=== PATIENT | male | born 1965 | race African-American/Black ===

== ENCOUNTER 2021-03-17 20:49 | Emergency (ER) | payer OTHER ==
[~2021-03-17] VITALS: Ht 175.3 cm; Wt 68.2 kg
[2021-03-17 21:17] LABS: GLUCOSE,POINT OF CARE 182 MG/DL (70-110)
[2021-03-17 21:28] LABS: BASOPHILS % (AUTO) 0.4 % (0.0-2.0); EOSINOPHILS % (AUTO) 2.9 % (1.0-6.0); HEMATOCRIT 40.1 % (41-53); HEMOGLOBIN 13.1 g/dL (13.5-17.5); LYMPHOCYTES # (AUTO) 1.7 K/uL (1.0-4.8); LYMPHOCYTES % (AUTO) 31.4 % (22.0-44.0); MEAN CORPUSCULAR HEMOGLOBIN 32.4 pg (26.0-34.0); MEAN CORPUSCULAR HGB CONC 32.6 G/dL (31.0-37.0); MEAN CORPUSCULAR VOLUME 99 fL (80-100); MONOCYTES # (AUTO) 0.5 K/uL (0.1-1.0); MONOCYTES % (AUTO) 10.2 % (2.0-9.0); NEUTROPHILS % (AUTO) 55.1 % (40.0-70.0); PLATELET COUNT (AUTO) 226 K/uL (150-450); RED BLOOD CELL COUNT(AUTO) 4.04 MIL/uL (4.50-5.90); RED CELL DISTRIBUTION WIDTH 12.8 % (11.5-14.5)
[2021-03-17] MEDS ORDERED: ONDANSETRON HCL 4 MG/2 ML VIAL IM ONE (21:30)
[2021-03-17 21:36] LABS: ANION GAP 5 mmol/L (8-16); CALCIUM, TOTAL 9.2 mg/dL (8.8-10.5); CARBON DIOXIDE 33 mmol/L (22-29); CHLORIDE 103 mmol/L (98-107); CREATININE 1.31 mg/dL (0.60-1.30); GLOMERULAR FILTR. RATE CALC > 60 mL/min (>60); GLUCOSE,RANDOM 196 mg/dL (70-110); POTASSIUM 4.2 mmol/L (3.5-5.1); SODIUM SERUM 141 mmol/L (136-145); UREA NITROGEN, BLOOD 16 mg/dL (7-18)
[2021-03-17 21:41] LABS: ALANINE AMINOTRANSFERASE 30 U/L (12-78); ALBUMIN 3.9 g/dL (3.4-5.0); ALKALINE PHOSPHATASE 91 U/L (46-116); ASPARTATE AMINOTRANSFERASE 28 U/L (15-37); BILIRUBIN,TOTAL 0.3 mg/dL (0.1-1.0); TOTAL PROTEIN, SERUM 7.4 g/dL (6.4-8.2)
[2021-03-18] MEDS ORDERED: LORazepam 2 MG/ML VIAL IM ONE (04:00)
[2021-03-18] MEDS ORDERED: DiphenhydrAMINE HCL 50 MG/ML VIAL IM ONE (04:00)
[2021-03-18] MEDS ORDERED: HALOPERIDOL LACTATE 5 MG/ML VIAL IM ONE (04:00)
[2021-03-18 04:56] VITALS: BP 134/82
== END 2021-03-18 07:52 | disposition home or self-care (01) ==
LOC: EMS 20:49
DX: F25.9 Schizoaffective disorder, unspecified (principal); R45.851 Suicidal ideations; F15.10 Other stimulant abuse, uncomplicated; E11.9 Type 2 diabetes mellitus without complications; E78.00 Pure hypercholesterolemia, unspecified; I10 Essential (primary) hypertension; Z59.0 Homelessness
CPT/HCPCS: 36415; 80053; 82962; 85025; 96372; 99291; G0480; J1200; J1630; J2060; J2405

== ENCOUNTER 2021-03-26 17:20 | Emergency (ER) | payer OTHER | END 2021-03-26 18:02 | LOC: EMS 17:20 | DX: Z02.89 Encounter for other administrative examinations (principal); Z53.21 Procedure and treatment not carried out due to patient leaving prior to being seen by health care provider ==

== ENCOUNTER 2021-10-14 17:45 | Emergency (ER) | payer OTHER ==
[~2021-10-14] VITALS: Ht 175.3 cm; Wt 81.8 kg
[2021-10-14] MEDS ORDERED: BUSP10TA23 PO (17:48)
[2021-10-14 20:04] LABS: BASOPHILS % (AUTO) 0.5 % (0.0-2.0); EOSINOPHILS % (AUTO) 3.1 % (1.0-6.0); HEMATOCRIT 34.2 % (41-53); HEMOGLOBIN 11.4 g/dL (13.5-17.5); LYMPHOCYTES # (AUTO) 1.2 K/uL (1.0-4.8); LYMPHOCYTES % (AUTO) 31.8 % (22.0-44.0); MEAN CORPUSCULAR HEMOGLOBIN 32.9 pg (26.0-34.0); MEAN CORPUSCULAR HGB CONC 33.2 G/dL (31.0-37.0); MEAN CORPUSCULAR VOLUME 99 fL (80-100); MONOCYTES # (AUTO) 0.3 K/uL (0.1-1.0); MONOCYTES % (AUTO) 8.4 % (2.0-9.0); NEUTROPHILS # (AUTO) 2.1 K/uL (1.8-7.7); NEUTROPHILS % (AUTO) 56.2 % (40.0-70.0); PLATELET COUNT (AUTO) 326 K/uL (150-450); RED BLOOD CELL COUNT(AUTO) 3.46 MIL/uL (4.50-5.90); RED CELL DISTRIBUTION WIDTH 14.8 % (11.5-14.5)
[2021-10-14 20:14] LABS: ANION GAP 2 mmol/L (8-16); CALCIUM, TOTAL 8.6 mg/dL (8.8-10.5); CARBON DIOXIDE 33 mmol/L (22-29); CHLORIDE 107 mmol/L (98-107); CREATININE 1.16 mg/dL (0.60-1.30); GLOMERULAR FILTR. RATE CALC > 60 mL/min (>60); GLUCOSE,RANDOM 292 mg/dL (70-110); POTASSIUM 3.7 mmol/L (3.5-5.1); SODIUM SERUM 142 mmol/L (136-145); UREA NITROGEN, BLOOD 7 mg/dL (7-18)
[2021-10-14 20:20] LABS: ALANINE AMINOTRANSFERASE 17 U/L (12-78); ALBUMIN 3.6 g/dL (3.4-5.0); ALKALINE PHOSPHATASE 69 U/L (46-116); ASPARTATE AMINOTRANSFERASE 16 U/L (15-37); BILIRUBIN,TOTAL 0.5 mg/dL (0.1-1.0); LIPASE 636 U/L (73-393); TOTAL PROTEIN, SERUM 7.2 g/dL (6.4-8.2)
[2021-10-14 20:45] VITALS: BP 122/71
[2021-10-14 21:45] LABS: AMPHET/METH SCREEN,URINE NEGATIVE (NEGATIVE); BARBITURATE SCREEN, URINE NEGATIVE (NEGATIVE); BENZODIAZEPINES SCREEN,URINE NEGATIVE (NEGATIVE); CANNABINOID SCREEN,URINE NEGATIVE (NEGATIVE); COCAINE SCREEN,URINE NEGATIVE (NEGATIVE); METHADONE SCREEN, URINE NEGATIVE (NEGATIVE); OPIATE SCREEN,URINE NEGATIVE (NEGATIVE)
[2021-10-14 21:50] LABS: PHENCYCLIDINE SCREEN,URINE NEGATIVE (NEGATIVE)
== END 2021-10-14 21:41 | disposition home or self-care (01) ==
LOC: EMS 17:50
DX: K85.90 Acute pancreatitis without necrosis or infection, unspecified (principal); F31.9 Bipolar disorder, unspecified; I10 Essential (primary) hypertension; E78.00 Pure hypercholesterolemia, unspecified; E11.9 Type 2 diabetes mellitus without complications; Z79.899 Other long term (current) drug therapy
CPT/HCPCS: 36415; 80053; 80307; 83690; 84484; 85025; 99283; G0480

== ENCOUNTER 2023-09-06 02:53 | Inpatient (IN) | payer OTHER ==
[~2023-09-06] VITALS: Ht 175.3 cm; Wt 74.0 kg
[~2023-09-06 02:53] MED LIST: BUSP10TA23 PO
[2023-09-06 03:26] LABS: BASOPHILS % (AUTO) 0.4 % (0.0-2.0); EOSINOPHILS % (AUTO) 1.8 % (1.0-6.0); HEMATOCRIT 38.5 % (41-53); LYMPHOCYTES # (AUTO) 2.2 K/uL (1.0-4.8); LYMPHOCYTES % (AUTO) 41.5 % (22.0-44.0); MEAN CORPUSCULAR HEMOGLOBIN 33.3 pg (26.0-34.0); MEAN CORPUSCULAR HGB CONC 33.7 G/dL (31.0-37.0); MEAN CORPUSCULAR VOLUME 99 fL (80-100); MONOCYTES # (AUTO) 0.5 K/uL (0.1-1.0); MONOCYTES % (AUTO) 8.9 % (2.0-9.0); NEUTROPHILS # (AUTO) 2.6 K/uL (1.8-7.7); NEUTROPHILS % (AUTO) 47.4 % (40.0-70.0); PLATELET COUNT (AUTO) 239 K/uL (150-450); RED BLOOD CELL COUNT(AUTO) 3.89 MIL/uL (4.50-5.90); RED CELL DISTRIBUTION WIDTH 13.4 % (11.5-14.5); WHITE BLOOD COUNT (AUTO) 5.4 K/uL (4.5-11.0)
[2023-09-06 03:42] LABS: ALANINE AMINOTRANSFERASE 17 U/L (12-78); ALBUMIN 3.2 g/dL (3.4-5.0); ALKALINE PHOSPHATASE 106 U/L (46-116); ANION GAP 9 mmol/L (8-16); ASPARTATE AMINOTRANSFERASE 13 U/L (15-37); BILIRUBIN,TOTAL 0.2 mg/dL (0.1-1.0); CALCIUM, TOTAL 7.9 mg/dL (8.8-10.5); CARBON DIOXIDE 23 mmol/L (22-29); CHLORIDE 90 mmol/L (98-107); CREATININE 1.17 mg/dL (0.60-1.30); GLOMERULAR FILTR. RATE CALC > 60 mL/min (>60); POTASSIUM 4.4 mmol/L (3.5-5.1); TOTAL PROTEIN, SERUM 6.6 g/dL (6.4-8.2); UREA NITROGEN, BLOOD 15 mg/dL (7-18)
[2023-09-06 03:51] LABS: ACETONE,BLOOD NEGATIVE (NEGATIVE)
[2023-09-06 03:53] LABS: SODIUM SERUM 122 mmol/L (136-145)
[2023-09-06 03:54] LABS: GLUCOSE,RANDOM 625 mg/dL (70-110)
[2023-09-06] MEDS ORDERED: SODIUM CHLORIDE 0.9% 2,200 ML IV ONE (04:00)
[2023-09-06] MEDS ORDERED: INSULIN REGULAR, HUMAN 100 UNITS/ML IVP ONE (04:15)
[2023-09-06] MEDS ORDERED: DEXTROSE 5%-WATER 1,000 ML IV SCH (04:30)
[2023-09-06] MEDS ORDERED: DEXTROSE 50%-WATER 25 GM/50 ML SYRINGE IVP PRN ×2 (04:30→09:45)
[2023-09-06] MEDS ORDERED: INSULIN REGULAR, HUMAN 100 UNITS in SODIUM CHLORIDE 0.9% 99 ML IV PRN ×2 (04:30)
[2023-09-06 04:38] LABS: COVID AG,FIA SOURCE NASAL SWAB
[2023-09-06] MEDS ORDERED: SODIUM CHLORIDE 0.9% 0 ML ONE (04:52)
[2023-09-06] MEDS ORDERED: INSULIN REGULAR, HUMAN 100 UNITS/ML ONE (04:52)
[2023-09-06 05:09] LABS: SARS-COV2 (COVID) ANTIGEN,FIA Negative (Negative)
[2023-09-06 06:41] LABS: GLUCOSE,POINT OF CARE 207 MG/DL (70-110)
[2023-09-06 07:50] LABS: GLUCOMETER DEV NAME(LOC) PVLAB.39; GLUCOSE,POINT OF CARE 169 MG/DL (70-110)
[2023-09-06 08:00] VITALS: BP 111/69; PULSE 67; RESP 22; TEMP 99.3
[2023-09-06 09:00] VITALS: BP 120/70; PULSE 67; RESP 18; TEMP 99.6
[2023-09-06] MEDS ORDERED: ACETAMINOPHEN 325 MG TABLET PO PRN (09:45)
[2023-09-06] MEDS ORDERED: ONDANSETRON HCL 4 MG/2 ML VIAL IVP PRN (09:45)
[2023-09-06] MEDS ORDERED: SODIUM CHLORIDE 0.9% 1,000 ML IV ONE (09:45)
[2023-09-06] MEDS ORDERED: MAGNESIUM HYDROXIDE SUSPENSION 30 ML UDCUP PO PRN (09:45)
[2023-09-06 10:36] LABS: GLUCOMETER DEV NAME(LOC) PVLAB.39; GLUCOSE,POINT OF CARE 167 MG/DL (70-110)
[2023-09-06 10:36] LABS: GLUCOMETER DEV NAME(LOC) PVLAB.39; GLUCOSE,POINT OF CARE 167 MG/DL (70-110)
[2023-09-06 10:36] LABS: GLUCOMETER DEV NAME(LOC) PVLAB.39; GLUCOSE,POINT OF CARE 65 MG/DL (70-110)
[2023-09-06 10:55] LABS: ANION GAP 5 mmol/L (8-16); CALCIUM, TOTAL 7.4 mg/dL (8.8-10.5); CARBON DIOXIDE 27 mmol/L (22-29); CHLORIDE 99 mmol/L (98-107); CREATININE 0.87 mg/dL (0.60-1.30); GLOMERULAR FILTR. RATE CALC > 60 mL/min (>60); GLUCOSE,RANDOM 161 mg/dL (70-110); POTASSIUM 4.3 mmol/L (3.5-5.1); SODIUM SERUM 131 mmol/L (136-145); UREA NITROGEN, BLOOD 10 mg/dL (7-18)
[2023-09-06] MEDS: INSULIN LISPRO 100 UNITS/ML SQ PRN ×2 (11:32→21:59)
[2023-09-06 12:00] VITALS: BP 115/68; PULSE 66; RESP 16; TEMP 98.3
[2023-09-06 15:21] LABS: GLUCOMETER DEV NAME(LOC) PVLAB.39; GLUCOSE,POINT OF CARE 187 MG/DL (70-110)
[2023-09-06] MEDS: HEPARIN SODIUM,PORCINE 5,000 UNITS/ML VIAL SQ SCH ×2 (16:00→23:25)
[2023-09-06 19:40] VITALS: BP 118/87; PULSE 80; RESP 18; TEMP 98.3
[2023-09-06 19:51] LABS: GLUCOMETER DEV NAME(LOC) 4E.2; GLUCOSE,POINT OF CARE 226 MG/DL (70-110)
[2023-09-06] MEDS: FAMOTIDINE 20 MG TABLET PO SCH (21:39)
[2023-09-07 00:03] LABS: APPEARANCE,URINE CLEAR (CLEAR); BILIRUBIN,URINE NEGATIVE (NEGATIVE); COLOR,URINE COLORLESS (YELLOW); GLUCOSE, URINE (UA) >=1000 mg/dL (NEGATIVE); LEUKOCYTE ESTERASE ,URINE NEGATIVE (NEGATIVE); NITRATE,URINE NEGATIVE (NEGATIVE); OCCULT BLOOD,URINE NEGATIVE (NEGATIVE); PH,URINE 6.5 (5.0-8.0); PH,URINE DRUG SCREEN 6.5 (5.0-8.0); PROTEIN,URINE NEGATIVE (NEGATIVE); SPECIFIC GRAVITIY, URINE 1.016 (1.003-1.030); UROBILINOGEN,URINE <=1.0 mg/dL (<=1.0)
[2023-09-07 00:07] LABS: AMPHET/METH SCREEN,URINE NEGATIVE (NEGATIVE); BARBITURATE SCREEN, URINE NEGATIVE (NEGATIVE); BENZODIAZEPINES SCREEN,URINE NEGATIVE (NEGATIVE); CANNABINOID SCREEN,URINE NEGATIVE (NEGATIVE); COCAINE SCREEN,URINE NEGATIVE (NEGATIVE); METHADONE SCREEN, URINE NEGATIVE (NEGATIVE); OPIATE SCREEN,URINE NEGATIVE (NEGATIVE); PHENCYCLIDINE SCREEN,URINE NEGATIVE (NEGATIVE)
[2023-09-07 00:09] LABS: ALCOHOL, URINE DRUG SCREEN NEGATIVE (NEGATIVE)
[2023-09-07 00:17] LABS: BACTERIA,URINE None Seen /HPF (None Seen); RBC,URINE None Seen /HPF (0-2); SQUAMOUS EPITHELIAL CELL,UR Rare /LPF (None Seen); WBC,URINE None Seen /HPF (0-5); YEAST,URINE None Seen /HPF (None Seen)
[2023-09-07 04:15] VITALS: BP 127/91; PULSE 67; RESP 20; TEMP 98.1
[2023-09-07 06:11] LABS: GLUCOMETER DEV NAME(LOC) 6S.2; GLUCOSE,POINT OF CARE 116 MG/DL (70-110)
[2023-09-07 06:56] LABS: GLUCOMETER DEV NAME(LOC) 6N.2B; GLUCOSE,POINT OF CARE 330 MG/DL (70-110)
[2023-09-07 06:57] LABS: GLUCOMETER DEV NAME(LOC) 6N.2B; GLUCOSE,POINT OF CARE 150 MG/DL (70-110)
[2023-09-07 07:25] VITALS: BP 126/86; PULSE 70; RESP 18; TEMP 97.6
[2023-09-07] MEDS: HEPARIN SODIUM,PORCINE 5,000 UNITS/ML VIAL SQ SCH ×3 (08:00→16:00)
[2023-09-07] MEDS: FAMOTIDINE 20 MG TABLET PO SCH (09:16)
[2023-09-07] MEDS: INSULIN LISPRO 100 UNITS/ML SQ PRN (12:05)
[2023-09-07] MEDS ORDERED: MetFORMIN HCL 500 MG TABLET PO SCH (18:00)
[2023-09-07 20:41] LABS: GLUCOMETER DEV NAME(LOC) 6S.2; GLUCOSE,POINT OF CARE 236 MG/DL (70-110)
== END 2023-09-07 16:01 | disposition left against medical advice (07) | DRG 420 ==
LOC: EMS 02:53 → ICU 05:00 → 6N 12:15
PROVIDERS: ADMIT Internal Medicine; ATTEND Internal Medicine
DX: E11.00 Type 2 diabetes mellitus with hyperosmolarity without nonketotic hyperglycemic-hyperosmolar coma (NKHHC) (principal); F25.9 Schizoaffective disorder, unspecified; E87.1 Hypo-osmolality and hyponatremia; Z20.822 Contact with and (suspected) exposure to COVID-19; I10 Essential (primary) hypertension; T38.3X6A Underdosing of insulin and oral hypoglycemic [antidiabetic] drugs, initial encounter; Z53.29 Procedure and treatment not carried out because of patient's decision for other reasons; E78.00 Pure hypercholesterolemia, unspecified; Z83.3 Family history of diabetes mellitus; Y92.89 Other specified places as the place of occurrence of the external cause; Z91.199 Patient's noncompliance with other medical treatment and regimen due to unspecified reason
CPT/HCPCS: 71045; 80048; 80053; 80307; 81001; 82009; 82962; 83036; 85025; 87081; 93005; 99291; J1644; J1815; J7030; J7050; J7060; 36415-L1; 36415-TC